=== PATIENT | female | born 1980 | race Caucasian/White ===

== ENCOUNTER → 2016-12-06 | Outpatient (CLI) | payer BC ==
[~2016-12-06] MED LIST: IBUP600T44 PO; PRENTAB26 PO; SYN150 PO
[2016-12-13 12:07] LABS: O&P SOURCE OTHER
== END | disposition home or self-care (01) ==
LOC: C.LABSPEC 07:14
PROVIDERS: ATTEND Physician Assistant
DX: R19.4 Change in bowel habit (principal)

== ENCOUNTER → 2017-06-21 | Outpatient (CLI) | payer OTHER ==
--- NOTE | 2017-06-21 09:00 | DIAGNOSTIC IMAGING REPORT ---
THYROID ULTRASOUND CLINICAL HISTORY: HARRIET'S THYROIDITIS COMPARISON STUDY: Thyroid ultrasound September 23, 2015. TECHNIQUE: Sonography of the thyroid gland was performed. FINDINGS: As before, the thyroid gland is markedly heterogeneous. The right lobe measures 4.6 x 1.6 x 1.4 cm and the left lobe measures 4.5 x 1.5 x 1.3 cm. A 4 mm echogenic focus consistent with calcification within the left thyroid lobe is unchanged. There are no suspicious thyroid nodules. IMPRESSION: 1. No change in appearance of the heterogeneous thyroid gland. 2. No discrete thyroid nodule. Electronically signed by: Sammy Maracno M.D. 06/21/2017 8:58 AM Dictated Date/Time: 06/21/2017 8:56 AM
== END | disposition home or self-care (01) ==
LOC: C.ULTR 07:56
PROVIDERS: ATTEND Internal Medicine Endocrinology, Diabetes & Metabolism
DX: E06.3 Autoimmune thyroiditis (principal)

== ENCOUNTER → 2017-09-07 | Outpatient (CLI) | payer OTHER | END | disposition home or self-care (01) | LOC: C.PAPS 13:24 | PROVIDERS: ATTEND Obstetrics & Gynecology | DX: Z01.419 Encounter for gynecological examination (general) (routine) without abnormal findings (principal); Z11.51 Encounter for screening for human papillomavirus (HPV) ==